=== PATIENT | female | born 1930 ===

== ENCOUNTER 2017-07-08 04:02 | Inpatient (IN) | payer MEDICARE ==
--- NOTE | 2017-07-08 04:08 | C.PDOC ---
History Of Present Illness 86 year old female is brought to the ED by EMS for evaluation of pressure like chest pain that started yesterday. Patient reports pain worsened tonight which made her call 911. Patient received 324 aspirin and 2 SL nitro en route. Patient is still c/o chest discomfort. Patient denies fever. chills, nausea, vomit, diarrhea, back pain, dizziness, headache, weakness, numbness. Time Seen by Provider: 07/08/17 04:08 Chief Complaint (Nursing): Chest Pain History Per: Patient, EMS History/Exam Limitations: no limitations Onset/Duration Of Symptoms: Days Current Symptoms Are (Timing): Still Present Context: Other Severity: Moderate Pain Scale Rating Of: 4 Quality: Pressure Exacerbating Factors: None Alleviating Factors: None Nitro Therapy Administered: 2, Per EMS, Partial Relief Recent travel outside of the [place]: No Additional History Per: Patient, EMS Past Medical History Reviewed: Historical Data, Nursing Documentation, Vital Signs Vital Signs: Last Vital Signs Temp 98.3 F 07/08/17 05:20 Pulse 89 07/08/17 05:20 Resp 20 07/08/17 05:20 BP 133/64 07/08/17 05:20 Pulse Ox 98 07/08/17 05:46 - Medical History PMH: Arthritis, HTN, Parkinson's Disease Surgical History: No Surg Hx - [facility] Procedures CATARAC PHACOEMULS/ASPIR (10/13/12) INJECT/INFUSE NEC (04/29/13) INSERT LENS AT CATAR EXT (10/13/12) PART OSTECT-METACAR/CAR (04/29/13) Family History: States: No Known Family Hx - Social History Hx Alcohol Use: No Hx Substance Use: No Review Of Systems Constitutional: Negative for: Fever, Chills Eyes: Negative for: Vision Change Cardiovascular: Positive for: Chest Pain. Negative for: Palpitations Respiratory: Negative for: Shortness of Breath Gastrointestinal: Negative for: Nausea, Vomiting, Abdominal Pain Skin: Negative for: Rash Neurological: Negative for: Weakness, Numbness, Headache, Dizziness Psych: Negative for: Anxiety Physical Exam - Physical Exam Appears: Non-toxic, No Acute Distress Skin: Warm, Dry Head: Normacephalic Eye(s): bilateral: Normal Inspection Nose: No Discharge Oral Mucosa: Moist Neck: Supple Chest: Symmetrical Cardiovascular: Rhythm Regular, No Murmur Respiratory: No Rales, Rhonchi (scattered ), No Wheezing Gastrointestinal/Abdominal: Soft, No Tenderness, No Guarding, No Rebound Extremity: No Tenderness, No Swelling Extremity: Bilateral: Atraumatic, Normal Color And Temperature, Normal ROM Pulses: Left Dorsalis Pedis: Normal, Right Dorsalis Pedis: Normal Neurological/Psych: Oriented x3, Other (diffuse tremors) Gait: With Assistance ED Course And Treatment - Laboratory Results Result Diagrams: 07/08/17 04:18 07/08/17 04:18 ECG: Interpreted By Me, Viewed By Me ECG Rhythm: Sinus Rhythm (78), Nonspecific Changes (lvh) O2 Sat by Pulse Oximetry: 98 (ON RA) Pulse Ox Interpretation: Normal - Radiology CXR: Interpreted by Me, Viewed By Me CXR Interpretation: No: Infiltrates, Fracture, Pnemothorax Progress Note: Plan: - EKG. - Labs. - CXR Disposition Discussed With : Isaiah Patino Comment: accepted the pt on his service and took over the care at 5:44 AM Doctor Will See Patient In The: Hospital Counseled Patient/Family Regarding: Studies Performed, Diagnosis - Disposition Disposition: HOSPITALIZED Disposition Time: 04:08 Condition: FAIR - POA Present On Arrival: Poor Glycemic Control - Clinical Impression Clinical Impression: Chest pain - Scribe Statement The provider has reviewed the documentation as recorded by the Scribe Bucky Márquez All medical record entries made by the Scribe were at my direction and personally dictated by me. I have reviewed the chart and agree that the record accurately reflects my personal performance of the history, physical exam, medical decision making, and the department course for this patient. I have also personally directed, reviewed, and agree with the discharge instructions and disposition. Decision To Admit - Pt Status Changed To: Hospital Disposition Of: Inpatient - Admit Certification Admit to Inpatient:: After my assessment, the patient will require hospitalization for at least two midnights. This is because of the severity of symptoms shown, intensity of services needed, and/or the medical risk in this patient being treated as an outpatient. - InPatient: Physician Admission Certification: I certify that this patient requires 2 or more midnights of care for the following reason:: After my assessment, the patient will require hospitalization for at least two midnights. This is because of the severity of symptoms shown, intensity of services needed, and/or the medical risk in this patient being treated as an outpatient. - . Bed Request Type: Telemetry Admitting Physician: Isaiah Patino Patient Diagnosis: Chest pain
[2017-07-08 04:21] LABS: BASO % 0.4 % (0.0-2.0); EOS # 0.1 K/uL (0.0-0.7); EOS % 2.7 % (0.0-4.0); HEMOGLOBIN 10.9 g/dL (11.0-16.0); LYMPH # 1.7 K/uL (1.0-4.3); LYMPH % 35.4 % (20.0-40.0); MEAN CELL VOLUME 90.5 fL (81.0-99.0); MEAN CORPUSCULAR HGB CONC 33.1 g/dL (33.0-37.0); MEAN PLATELET VOLUME 8.9 fL (7.2-11.7); MONO # 0.3 K/uL (0.0-0.8); NEUT # 2.6 K/uL (1.8-7.0); NEUT % 54.5 % (50.0-75.0); RBC 3.63 Mil/uL (3.80-5.20); RED CELL DISTRIBUTION WIDTH 13.8 % (11.5-14.5); WHITE BLOOD COUNT 4.8 K/uL (4.8-10.8)
[2017-07-08 04:30] LABS: PROTHROMBIN TIME 11.5 SECONDS (9.7-12.2)
[2017-07-08 04:33] LABS: ALB/GLOB RATIO 1.3 (1.0-2.1); ALBUMIN 3.9 g/dL (3.5-5.0); ALT/SGPT 23 U/L (9-52); AST/SGOT 25 U/L (14-36); BLOOD UREA NITROGEN 13 mg/dL (7-17); CALCIUM 9.1 mg/dl (8.6-10.4); GFR AFRICAN-AMERICAN > 60; GFR NON-AFRICAN AMERICAN > 60
[2017-07-08 04:44] LABS: B-TYPE NATRIURETIC PEPTIDE 153 pg/mL (0-900)
[2017-07-08 06:55] VITALS: RESP 20
--- NOTE | 2017-07-08 08:16 | RAD ---
HISTORY: chest pain COMPARISON: None TECHNIQUE: Chest one view . FINDINGS: LUNGS: No focal consolidation is seen. Mild bibasilar atelectasis. PLEURA: No pleural effusion is identified. CARDIOVASCULAR: Heart size is within normal limits.Atherosclerotic calcifications noted of the aorta. OSSEOUS STRUCTURES: High-riding right humeral head, suggestive of chronic rotator cuff tear. There are 2 suture anchors in the right humeral head and 1 suture anchor in the left humeral head, from prior rotator cuff surgery. Bones are demineralized. Visualized osseous structures demonstrate degenerative changes. VISUALIZED UPPER ABDOMEN: Unremarkable. OTHER FINDINGS: None. IMPRESSION: Mild bibasilar atelectasis.
[2017-07-08] MEDS: Cilostazol 100 mg Tab UD PO SCH ×2 (10:58→18:30)
[2017-07-08] MEDS: Enoxaparin 40 mg Syringe SC SCH (11:00)
[2017-07-08 11:22] LABS: HDL CHOLESTEROL 56 mg/dL (30-70)
[2017-07-08 11:33] LABS: LDL CHOLESTEROL 79 mg/dL (0-129)
[2017-07-08] MEDS: (Novolog) Insulin Aspart, Recombinant 100 u/ml 10 ml vial SC SCH ×3 (12:05→22:25)
[2017-07-08 14:04] LABS: CK-MB 1.78 ng/mL (0.0-3.38)
[2017-07-08 20:40] LABS: CK-MB 1.73 ng/mL (0.0-3.38)
--- NOTE | 2017-07-08 23:49 | CP.PCM.HP ---
History of Present Illness - History of Present Illness History of Present Illness: History Of Present Illness 86 year old female is brought to the ED by EMS for evaluation of pressure like chest pain that started yesterday. Patient reports pain worsened tonight which made her call 911. Patient received 324 aspirin and 2 SL nitro en route. Patient is still c/o chest discomfort. Patient denies fever. chills, nausea, vomit, diarrhea, back pain, dizziness, headache, weakness, numbness. Past Patient History - Past Medical History & Family History Past Medical History?: Yes - Past Social History Smoking Status: Never Smoked - CARDIAC Hx Hypertension: Yes - PULMONARY Hx Respiratory Disorders: No - NEUROLOGICAL Hx Neurological Disorder: Yes Hx Parkinson's Disease: Yes - HEENT Hx HEENT Problems: No - RENAL Hx Chronic Kidney Disease: No - ENDOCRINE/METABOLIC Hx Diabetes Mellitus Type 2: Yes - HEMATOLOGICAL/ONCOLOGICAL Hx Blood Disorders: No - INTEGUMENTARY Hx Dermatological Problems: No - MUSCULOSKELETAL/RHEUMATOLOGICAL Hx Arthritis: Yes - GASTROINTESTINAL Hx Gastrointestinal Disorders: No - GENITOURINARY/GYNECOLOGICAL Hx Genitourinary Disorders: No - PSYCHIATRIC Hx Anxiety: Yes Hx Substance Use: No - SURGICAL HISTORY Hx Surgeries: Yes Other/Comment: bilateral knee replacement, bladder sx, shoulder sx - ANESTHESIA Hx Anesthesia: Yes Hx Anesthesia Reactions: No Meds Allergies/Adverse Reactions: Allergies Allergy/AdvReac Type Severity Reaction Status Date / Time azithromycin Allergy Mild RASH Verified 07/08/17 04:12 Results - Vital Signs Recent Vital Signs: Last Vital Signs Temp 97.9 F 07/08/17 15:46 Pulse 95 H 07/08/17 15:46 Resp 20 07/08/17 15:46 BP 132/55 L 07/08/17 15:46 Pulse Ox 98 07/08/17 15:46 - Labs Result Diagrams: 07/08/17 04:18 07/08/17 04:18 Labs: Laboratory Results - last 24 hr 07/08/17 07/08/17 07/08/17 04:18 04:18 04:18 WBC 4.8 RBC 3.63 L Hgb 10.9 L Hct 32.8 L MCV 90.5 MCH 30.0 MCHC 33.1 RDW 13.8 Plt Count 159 MPV 8.9 Neut % (Auto) 54.5 Lymph % (Auto) 35.4 [place] % (Auto) 7.0 Eos % (Auto) 2.7 Baso % (Auto) 0.4 Neut # (Auto) 2.6 Lymph # (Auto) 1.7 [place] # (Auto) 0.3 Eos # (Auto) 0.1 Baso # (Auto) 0.0 PT 11.5 INR 1.0 APTT 28 Sodium 142 Potassium 4.2 Chloride 104 Carbon Dioxide 25 Anion Gap 17 BUN 13 Creatinine 0.7 Est GFR ( Amer) > 60 Est GFR (Non-Af Amer) > 60 POC Glucose (mg/dL) Random Glucose 109 H Calcium 9.1 Total Bilirubin 0.6 AST 25 ALT 23 Alkaline Phosphatase 77 Total Creatine Kinase CK-MB (Mass) Troponin I 0.0230 NT-Pro-B Natriuret Pep 153 Total Protein 6.8 Albumin 3.9 Globulin 2.9 Albumin/Globulin Ratio 1.3 Triglycerides Cholesterol LDL Cholesterol Direct HDL Cholesterol 07/08/17 07/08/17 07/08/17 10:53 13:20 13:31 WBC RBC Hgb Hct MCV MCH MCHC RDW Plt Count MPV Neut % (Auto) Lymph % (Auto) [place] % (Auto) Eos % (Auto) Baso % (Auto) Neut # (Auto) Lymph # (Auto) [place] # (Auto) Eos # (Auto) Baso # (Auto) PT INR APTT Sodium Potassium Chloride Carbon Dioxide Anion Gap BUN Creatinine Est GFR ( Amer) Est GFR (Non-Af Amer) POC Glucose (mg/dL) 92 Random Glucose Calcium Total Bilirubin AST ALT Alkaline Phosphatase Total Creatine Kinase 113 CK-MB (Mass) 1.78 Troponin I < 0.0120 < 0.0120 NT-Pro-B Natriuret Pep Total Protein Albumin Globulin Albumin/Globulin Ratio Triglycerides 93 Cholesterol 168 LDL Cholesterol Direct 79 HDL Cholesterol 56 07/08/17 07/08/17 07/08/17 16:42 20:12 21:17 WBC RBC Hgb Hct MCV MCH MCHC RDW Plt Count MPV Neut % (Auto) Lymph % (Auto) [place] % (Auto) Eos % (Auto) Baso % (Auto) Neut # (Auto) Lymph # (Auto) [place] # (Auto) Eos # (Auto) Baso # (Auto) PT INR APTT Sodium Potassium Chloride Carbon Dioxide Anion Gap BUN Creatinine Est GFR ( Amer) Est GFR (Non-Af Amer) POC Glucose (mg/dL) 77 124 H Random Glucose Calcium Total Bilirubin AST ALT Alkaline Phosphatase Total Creatine Kinase 111 CK-MB (Mass) 1.73 Troponin I < 0.0120 NT-Pro-B Natriuret Pep Total Protein Albumin Globulin Albumin/Globulin Ratio Triglycerides Cholesterol LDL Cholesterol Direct HDL Cholesterol
[2017-07-09 04:32] VITALS: TEMP 97.9
[2017-07-09] MEDS: (Novolog) Insulin Aspart, Recombinant 100 u/ml 10 ml vial SC SCH ×2 (07:30→11:21)
[2017-07-09 08:14] VITALS: O2SAT 95
[2017-07-09] MEDS ORDERED: Nitroglycerin 0.2 mg/hr Top Patch TD SCH (10:00)
[2017-07-09 10:04] VITALS: BP 116/63; PULSE 111
[2017-07-09] MEDS: Cilostazol 100 mg Tab UD PO SCH (10:04)
[2017-07-09] MEDS: Enoxaparin 40 mg Syringe SC SCH (10:04)
--- NOTE | 2017-07-09 10:56 | CP.PCM.PN ---
Subjective - Date & Time of Evaluation Date of Evaluation: 07/09/17 Time of Evaluation: 10:50 - Subjective Subjective: Patient seen and examined today , denies any chest pain, sob abdominal pain, palpitations , dizziness No overnight events recorded on monitor OOb ambulated with PT, no dyspnea or chest pain reported upon walking Objective - Vital Signs/Intake and Output Vital Signs (last 24 hours): Temp Pulse Resp BP Pulse Ox 97.9 F 111 H 20 116/63 95 07/09/17 07:00 07/09/17 10:03 07/09/17 07:00 07/09/17 10:04 07/09/17 07:00 - Medications Medications: Current Medications Aspirin (Aspirin Chewable) 81 mg PO STAT STA Stop: 07/09/17 10:54 Cilostazol (Pletal) 100 mg PO BID [facility] Last Admin: 07/09/17 10:04 Dose: 100 mg Enoxaparin Sodium (Lovenox) 40 mg SC DAILY [facility] Last Admin: 07/09/17 10:04 Dose: 40 mg Furosemide (Lasix) 20 mg PO DAILY [facility] Last Admin: 07/09/17 10:04 Dose: 20 mg Glimepiride (Amaryl) 1 mg PO DAILY [facility] Last Admin: 07/09/17 10:03 Dose: 1 mg Insulin Aspart (Novolog) 0 unit SC [facility] PRN Reason: Protocol Last Admin: 07/09/17 07:30 Dose: Not Given Lorazepam (Ativan) 0.5 mg PO BID PRN PRN Reason: Anxiety Last Admin: 07/08/17 22:33 Dose: 0.5 mg Nitroglycerin (Nitro-Dur 0.2 Mg/Hr Patch) 1 patch TD DAILY [facility] Last Admin: 07/09/17 10:04 Dose: 1 patch Pramipexole Dihydrochloride (Mirapex) 0.125 mg PO BID [facility] Last Admin: 07/09/17 10:03 Dose: 0.125 mg Propranolol HCl (Inderal) 20 mg PO BID [facility] Last Admin: 07/09/17 10:04 Dose: 20 mg Rosuvastatin Calcium (Crestor) 5 mg PO HS [facility] Last Admin: 07/08/17 22:33 Dose: 5 mg Tramadol HCl (Ultram) 50 mg PO BID PRN PRN Reason: Other Last Admin: 07/08/17 11:21 Dose: 50 mg - Labs Labs: 07/08/17 04:18 07/08/17 04:18 PT 11.5 SECONDS (9.7-12.2) 07/08/17 04:18 INR 1.0 07/08/17 04:18 APTT 28 SECONDS (21-34) 07/08/17 04:18 - Constitutional Appears: Well, No Acute Distress - Respiratory Exam Respiratory Exam: Clear to Ausculation Bilateral, NORMAL BREATHING PATTERN - Cardiovascular Exam Cardiovascular Exam: REGULAR RHYTHM, +S1, +S2 - Neurological Exam Neurological Exam: Alert, Awake, Oriented x3 Assessment and Plan - Assessment and Plan (Free Text) Assessment: A/P 86 yr old female with pmhx of HTN, Parkinson's Disease admitted with chest pain troponin x 4 - negative Ekg- NSR no acute st- t wave changes d/w Dr. 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
--- NOTE | 2017-07-09 23:36 | CP.PCM.DIS ---
Provider - Provider Date of Admission: 07/08/17 05:42 Attending physician: Isaiah Patino MD Hospital Course - Lab Results Lab Results: Most Recent Lab Values WBC 4.8 K/uL (4.8-10.8) 07/08/17 04:18 RBC 3.63 Mil/uL (3.80-5.20) L 07/08/17 04:18 Hgb 10.9 g/dL (11.0-16.0) L 07/08/17 04:18 Hct 32.8 % (34.0-47.0) L 07/08/17 04:18 MCV 90.5 fL (81.0-99.0) 07/08/17 04:18 MCH 30.0 pg (27.0-31.0) 07/08/17 04:18 MCHC 33.1 g/dL (33.0-37.0) 07/08/17 04:18 RDW 13.8 % (11.5-14.5) 07/08/17 04:18 Plt Count 159 K/uL (130-400) 07/08/17 04:18 MPV 8.9 fL (7.2-11.7) 07/08/17 04:18 Neut % (Auto) 54.5 % (50.0-75.0) 07/08/17 04:18 Lymph % (Auto) 35.4 % (20.0-40.0) 07/08/17 04:18 [place] % (Auto) 7.0 % (0.0-10.0) 07/08/17 04:18 Eos % (Auto) 2.7 % (0.0-4.0) 07/08/17 04:18 Baso % (Auto) 0.4 % (0.0-2.0) 07/08/17 04:18 Neut # (Auto) 2.6 K/uL (1.8-7.0) 07/08/17 04:18 Lymph # (Auto) 1.7 K/uL (1.0-4.3) 07/08/17 04:18 [place] # (Auto) 0.3 K/uL (0.0-0.8) 07/08/17 04:18 Eos # (Auto) 0.1 K/uL (0.0-0.7) 07/08/17 04:18 Baso # (Auto) 0.0 K/uL (0.0-0.2) 07/08/17 04:18 PT 11.5 SECONDS (9.7-12.2) 07/08/17 04:18 INR 1.0 07/08/17 04:18 APTT 28 SECONDS (21-34) 07/08/17 04:18 Sodium 142 mmol/L (132-148) 07/08/17 04:18 Potassium 4.2 mmol/L (3.6-5.2) 07/08/17 04:18 Chloride 104 mmol/L (98-107) 07/08/17 04:18 Carbon Dioxide 25 mmol/L (22-30) 07/08/17 04:18 Anion Gap 17 (10-20) 07/08/17 04:18 BUN 13 mg/dL (7-17) 07/08/17 04:18 Creatinine 0.7 mg/dL (0.7-1.2) 07/08/17 04:18 Est GFR ( Amer) > 60 07/08/17 04:18 Est GFR (Non-Af Amer) > 60 07/08/17 04:18 POC Glucose (mg/dL) 85 mg/dL (65-110) 07/09/17 11:16 Random Glucose 109 mg/dL (65-105) H 07/08/17 04:18 Calcium 9.1 mg/dl (8.6-10.4) 07/08/17 04:18 Total Bilirubin 0.6 mg/dL (0.2-1.3) 07/08/17 04:18 AST 25 U/L (14-36) 07/08/17 04:18 ALT 23 U/L (9-52) 07/08/17 04:18 Alkaline Phosphatase 77 U/L (38-126) 07/08/17 04:18 Total Creatine Kinase 111 U/L (30-135) 07/08/17 20:12 CK-MB (Mass) 1.73 ng/mL (0.0-3.38) 07/08/17 20:12 Troponin I < 0.0120 ng/mL (0.00-0.120) 07/08/17 20:12 NT-Pro-B Natriuret Pep 153 pg/mL (0-900) 07/08/17 04:18 Total Protein 6.8 g/dL (6.3-8.3) 07/08/17 04:18 Albumin 3.9 g/dL (3.5-5.0) 07/08/17 04:18 Globulin 2.9 gm/dL (2.2-3.9) 07/08/17 04:18 Albumin/Globulin Ratio 1.3 (1.0-2.1) 07/08/17 04:18 Triglycerides 93 mg/dL (0-149) 07/08/17 10:53 Cholesterol 168 mg/dL (0-199) 07/08/17 10:53 LDL Cholesterol Direct 79 mg/dL (0-129) 07/08/17 10:53 HDL Cholesterol 56 mg/dL (30-70) 07/08/17 10:53 - Hospital Course Hospital Course: A/P 86 yr old female with pmhx of HTN, Parkinson's Disease admitted with chest pain troponin x 4 - negative Ekg- NSR no acute st- t wave changes Pt is stable for discharge home today and f/u with PMD/Driver Supervisor in 1 week Discharge plan discussed with patient and son, who understands and agrees with plan Patient instructed to returns to ED if symptoms returns or any concerning symptoms Discharge Plan - Discharge Medications Prescriptions: Rosuvastatin Calcium [Crestor] 5 mg PO HS #30 tab - Follow Up Plan Condition: FAIR Disposition: HOME/ ROUTINE Instructions: Heart Healthy Diet, Chest Pain (DC), High Cholesterol (DC), Rosuvastatin Additional Instructions: Please follow up with PMD in 3-5 days Please follow up with 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 rec. Referrals: Isaiah Patino MD [Staff Provider] - 07/16/17 1:00 pm (appointment made for you , spoke with Joseph
--- NOTE | 2017-07-10 00:01 | CARD ---
APPROVED REPORT EKG Measurement Heart [id number] <Conclusion> Normal sinus rhythm Left axis deviation Voltage criteria for left ventricular hypertrophy Anteroseptal infarct, age undetermined Abnormal ECG
== END 2017-07-09 13:21 | disposition home or self-care (01) | DRG 313 ==
LOC: C.ER 04:02 → C.9E 05:42 → C.6T 05:58
PROVIDERS: ADMIT Internal Medicine; ATTEND Internal Medicine
DX: R07.89 Other chest pain (principal); I10 Essential (primary) hypertension; G20 Parkinson's disease; E11.9 Type 2 diabetes mellitus without complications; M19.90 Unspecified osteoarthritis, unspecified site; Z96.653 Presence of artificial knee joint, bilateral; Z96.1 Presence of intraocular lens; Z79.82 Long term (current) use of aspirin; Z98.49 Cataract extraction status, unspecified eye; Z79.4 Long term (current) use of insulin